=== PATIENT | male | born 1995 | race Caucasian/White ===

== ENCOUNTER 2019-02-25 09:51 | Day surgery (SDC) | payer MEDICAID ==
[2019-02-24 15:25] LABS: CLARITY,URINE CLEAR (Clear); COLOR,URINE YELLOW (Yellow); GLUCOSE, URINE NEGATIVE (Neg); KETONES,URINE NEGATIVE (Neg); LEUKOCYTE ESTERASE ,URINE NEGATIVE (Neg); NITRITES, URINE NEGATIVE (Neg); OCCULT BLOOD,URINE NEGATIVE (Neg); PH,URINE 6.5 (4.8-8.0); PROTEIN,URINE TRACE mg/dl (Neg)
[2019-02-24 15:26] LABS: UA COLLECTION TYPE CLN CATCH MIDSTREAM
[2019-02-24 15:27] LABS: BASOPHILS # (AUTO) 0.1 X10'3 (0-0.2); BASOPHILS % (AUTO) 0.8 % (0-1); EOSINOPHILS # (AUTO) 0.3 X10'3 (0-0.9); LYMPHOCYTES # (AUTO) 2.3 X10'3 (1.1-4.8); MEAN CORPUSCULAR HEMOGLOBIN 26.2 PG (27.0-31.0); MEAN CORPUSCULAR HGB CONC 33.7 g/dL (33.0-36.5); MEAN CORPUSCULAR VOLUME 77.9 FL (78-98); MEAN PLATELET VOLUME 10.1 FL (7.4-10.4); MONOCYTES # (AUTO) 0.9 X10'3 (0-0.9); MONOCYTES % (AUTO) 8.7 % (2-12); NEUTROPHILS # (AUTO) 6.8 X10'3 (1.8-7.7); NEUTROPHILS % (AUTO) 65.5 % (42-75); PRE OP HEMATOCRIT 40.8 % (42.0-52.0); PRE OP HEMOGLOBIN 13.7 g/dL (14.0-17.9); PRE OP PLATELET COUNT 284 X10'3 (140-440); RED BLOOD COUNT 5.23 X10'6 (4.70-6.10); RED CELL DISTRIBUTION WIDTH 15.1 % (11.5-14.5)
[2019-02-24 15:39] LABS: ALBUMIN 3.5 G/DL (3.4-5.0); ALBUMIN/GLOBULIN RATIO 0.9 (1.1-1.5); ALKALINE PHOSPHATASE 62 IU/L (46-116); BLOOD UREA NITROGEN 8 MG/DL (7-18); CALCIUM 8.7 MG/DL (8.5-10.1); CHLORIDE 105 MMOL/L (99-107); CREATININE 0.89 MG/DL (0.60-1.10); PRE OP ALT 33 U/L (30-65); PRE OP ANION GAP 7 (8-16); PRE OP AST 16 U/L (10-37); PRE OP BILIRUB, TOTAL 0.4 MG/DL (0.0-1.0); PRE OP GLUCOSE 115 MG/DL (70-104); PRE OP POTASSIUM 3.8 MMOL/L (3.4-5.1); PRE OP SODIUM 138 MMOL/L (135-145); TOTAL PROTEIN 7.3 G/DL (6.4-8.2); eGFR > 90 ML/MIN
[2019-02-24 15:52] LABS: BACTERIA,URINE NONE SEEN /HPF (Neg); MUCUS STRANDS MANY /LPF (Neg); RBC,URINE NONE SEEN /HPF (0-2); SQUAMOUS EPITHELIAL CELL,UR NONE SEEN /LPF (FEW); TRANSITIONAL EPI CELLS,URINE FEW /HPF; WBC,URINE 0-4 /HPF (0-4)
[2019-02-25] VITALS (15 sets, daily range): BP systolic 107–152; BP diastolic 56–87
[~2019-02-25] VITALS: Ht 180.3 cm; Wt 140.2 kg
[~2019-02-25 09:51] MED LIST: DULO-31 PO; ceFAZolin 1,000 MG/D5W 50ML IVPB Premixed bag IV ONE; cefazolin/dext.iso 2gm/100 ML IV ONE
[2019-02-25] MEDS ORDERED: ceFAZolin inj. 3,000 MG in normal saline 100ml IV soln 100 ML IV ONE (10:00)
[2019-02-25] MEDS ORDERED: ringers solution, lacted 1,000 ML IV SCH ×2 (10:00→10:34)
[2019-02-25] MEDS ORDERED: famotidine 20mg tablet PO ONE (10:00)
[2019-02-25] MEDS ORDERED: labetalol 20mg/4ml (5mg/ml) syringe IV PRN (10:35)
[2019-02-25] MEDS ORDERED: ondansetron/PF 4mg/2ml inj IV PRN (10:35)
[2019-02-25] MEDS ORDERED: morphine 4 MG/ML inj SYRINge IV PRN ×2 (10:35)
[2019-02-25] MEDS ORDERED: fentaNYL/PF 50MCG/1 ML 2ML syringe IV PRN ×2 (10:35)
[2019-02-25] MEDS ORDERED: hydrALAZINE 20mg/ml inj. IV PRN (10:35)
[2019-02-25] MEDS ORDERED: fentaNYL/PF 50MCG/1 ML 2ML syringe ONE (13:38)
[2019-02-25] MEDS ORDERED: midazolam 2 mg/2 ml injection ONE (13:38)
[2019-02-25] MEDS ORDERED: ROPIVAcaine 0.5% (5mg/ml) 30ml vial ONE (13:41)
[2019-02-25] MEDS ORDERED: ondansetron/PF 4mg/2ml inj ONE (13:51)
[2019-02-25] MEDS ORDERED: dexamethasone sod phosphate 10mg/ml inj ONE (13:52)
[2019-02-25] MEDS ORDERED: sevoflurane 250ml liquid IH ONE (13:52)
[2019-02-25] MEDS ORDERED: propofol 10mg/ml 20ml vial IV ONE (13:52)
[2019-02-25] MEDS ORDERED: LIDOcaine 1%/PF 5ML 10 MG/ML VIAL ONE (13:52)
--- NOTE | 2019-02-25 14:53 | NUR ---
Received from OR via [facility], accompanied by Anesthesiologist DR CAZARES and report given by Anesthesiologist. PT DROWSY, DENIES PAIN, SHERRY MEHTA COVERED W/FOAM TAPE TYSON, CIARA. Addendum: 02/25/19 at 1532 by Letty Espinosa RN Amended: Links added.
== END 2019-02-25 17:23 | disposition home or self-care (01) ==
LOC: PAS 09:51
PROVIDERS: ATTEND Surgery
DX: K64.5 Perianal venous thrombosis (principal); K62.6 Ulcer of anus and rectum; K21.9 Gastro-esophageal reflux disease without esophagitis; F41.8 Other specified anxiety disorders; Z79.899 Other long term (current) drug therapy; Z98.890 Other specified postprocedural states
CPT/HCPCS: 36415; 45330; 46255; 46922; 80053; 81001; 82948; 85025; A6224; J0690; J1100; J2001; J2250; J2270; J2405; J2704; J3010; A6449; A7000; J2795; J7030; J7120

== ENCOUNTER 2019-03-02 01:04 | Emergency (ER) | payer MEDICAID ==
[~2019-03-02] VITALS: Ht 180.3 cm; Wt 135.6 kg
[~2019-03-02 01:04] MED LIST changes: -ceFAZolin 1,000 MG/D5W 50ML IVPB Premixed bag IV ONE; -cefazolin/dext.iso 2gm/100 ML IV ONE
[2019-03-02 01:40] VITALS: BP 118/82
== END 2019-03-02 03:47 | disposition left against medical advice (07) ==
LOC: ER 01:06
DX: G89.18 Other acute postprocedural pain (principal); Z53.21 Procedure and treatment not carried out due to patient leaving prior to being seen by health care provider